=== PATIENT | male | born 1985 | race Caucasian/White ===

== ENCOUNTER 2017-02-04 15:34 | Emergency (ER) | payer OTHER ==
--- NOTE | 2017-02-04 18:28 | ED CLINICAL REPORT ---
Clinical Report - Physicians/Mid Levels [facility] [address] [place] [address] 02/04/2017 15:38 Patient: INA VARGAS Time Seen: 15:49; initial patient contact. Arrived- By private vehicle. Historian- patient. HISTORY OF PRESENT ILLNESS Chief Complaint: Injury to right shoulder. 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 Dislocated while raising arm. (possible). Occurred at home. Patient is experiencing moderate pain. Patient denies injury to the head or neck. REVIEW OF SYSTEMS No swelling, tingling, numbness or neck pain. He has had joint pain. All systems otherwise negative, except as recorded above. PAST HISTORY AC Joint Separation. Sprain. Tetanus Status. Diabetes Mellitus. SURGERIES: Shoulder Surgery. Medications: Baclofen Oral. BusPIRone HCl Oral. Topamax Oral. CeleXA Oral. Novalog. Lantus Subcutaneous. Allergies: Latex. SOCIAL HISTORY Never smoker. No alcohol use or drug use. ADDITIONAL NOTES The nursing notes have been reviewed. PHYSICAL EXAM Vital Signs: 02/04/2017 15:48 BP: 131/82. HR: 103. RR: 16. O2 saturation: 100%. Temp: 98.2 F. Pain level now: 10/10. Have been reviewed. Blood pressure normal. Tachycardic. Respiratory rate normal. Temperature normal. Oxygen saturation normal. Appearance: Alert. Oriented X3. No acute distress. Skin: Skin intact. Skin warm. Normal skin color. Extremities: Normal external inspection. Right shoulder: moderate tenderness. Limited ROM due to pain (diminished abduction, flexion, extension and external and internal rotation). Neurovascular intact distally. No erythema, swelling or deformity. No joint effusion. Shoulder otherwise negative. Extremities otherwise negative. Neuro, Vascular and Tendons: Sensation intact. Motor intact. Vascular status intact. Tendon function intact. Neuro: Oriented X 3. No motor deficit. No sensory deficit. LABS, X-RAYS, AND EKG Rt Shoulder X-ray: No fracture. Normal alignment. Soft tissues normal. Views: AP with external rotation and AP with internal rotation. Technique: good. The X-rays were independently viewed by me and interpreted contemporaneously by me. Prior films were not available for comparison. PROGRESS AND PROCEDURES Disposition: Discharged home in good and improved condition. Condition: good. CLINICAL IMPRESSION Muscle strain of the right rotator cuff at the shoulder. INSTRUCTIONS Apply ice for 20 minutes four times a day until better. Don't apply ice directly to skin. Your Current Medications: CONTINUE TAKING THE FOLLOWING MEDICATIONS: Baclofen Oral. BusPIRone HCl Oral. CeleXA Oral. Lantus Subcutaneous. Novalog*. Topamax Oral. Prescription Medications: Diclofenac 50 mg tablets: take 1 tablet orally every 8 hours as needed for pain or stiffness. Dispense thirty (30). No refill. Follow-up: Follow up with your doctor in about two days. Call for an appointment. Blood pressure screening was not performed during this visit because the patient has an active diagnosis of hypertension. (Electronically signed by Geoff Castano Dr. 02/05/2017 20:49)
--- NOTE | 2017-02-04 18:28 | ED CLINICAL REPORT ---
Clinical Report - Physicians/Mid Levels [facility] [address] [place] [address] 02/04/2017 15:38 Patient: INA VARGAS Time Seen: 15:49; initial patient contact. Arrived- By private vehicle. Historian- patient. HISTORY OF PRESENT ILLNESS Chief Complaint: Injury to right shoulder. 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 Dislocated while raising arm. (possible). Occurred at home. Patient is experiencing moderate pain. Patient denies injury to the head or neck. REVIEW OF SYSTEMS No swelling, tingling, numbness or neck pain. He has had joint pain. All systems otherwise negative, except as recorded above. PAST HISTORY AC Joint Separation. Sprain. Tetanus Status. Diabetes Mellitus. SURGERIES: Shoulder Surgery. Medications: Baclofen Oral. BusPIRone HCl Oral. Topamax Oral. CeleXA Oral. Novalog. Lantus Subcutaneous. Allergies: Latex. SOCIAL HISTORY Never smoker. No alcohol use or drug use. ADDITIONAL NOTES The nursing notes have been reviewed. PHYSICAL EXAM Vital Signs: 02/04/2017 15:48 BP: 131/82. HR: 103. RR: 16. O2 saturation: 100%. Temp: 98.2 F. Pain level now: 10/10. Have been reviewed. Blood pressure normal. Tachycardic. Respiratory rate normal. Temperature normal. Oxygen saturation normal. Appearance: Alert. Oriented X3. No acute distress. Skin: Skin intact. Skin warm. Normal skin color. Extremities: Normal external inspection. Right shoulder: moderate tenderness. Limited ROM due to pain (diminished abduction, flexion, extension and external and internal rotation). Neurovascular intact distally. No erythema, swelling or deformity. No joint effusion. Shoulder otherwise negative. Extremities otherwise negative. Neuro, Vascular and Tendons: Sensation intact. Motor intact. Vascular status intact. Tendon function intact. Neuro: Oriented X 3. No motor deficit. No sensory deficit. LABS, X-RAYS, AND EKG Rt Shoulder X-ray: No fracture. Normal alignment. Soft tissues normal. Views: AP with external rotation and AP with internal rotation. Technique: good. The X-rays were independently viewed by me and interpreted contemporaneously by me. Prior films were not available for comparison. PROGRESS AND PROCEDURES Disposition: Discharged home in good and improved condition. Condition: good. CLINICAL IMPRESSION Muscle strain of the right rotator cuff at the shoulder. INSTRUCTIONS Apply ice for 20 minutes four times a day until better. Don't apply ice directly to skin. Your Current Medications: CONTINUE TAKING THE FOLLOWING MEDICATIONS: Baclofen Oral. BusPIRone HCl Oral. CeleXA Oral. Lantus Subcutaneous. Novalog*. Topamax Oral. Prescription Medications: Diclofenac 50 mg tablets: take 1 tablet orally every 8 hours as needed for pain or stiffness. Dispense thirty (30). No refill. Follow-up: Follow up with your doctor in about two days. Call for an appointment. Blood pressure screening was not performed during this visit because the patient has an active diagnosis of hypertension. (Electronically signed by Geoff Castano Dr. 02/05/2017 20:49)
--- NOTE | 2017-02-04 18:28 | ED NURSING NOTES ---
Clinical Report - Nurses [facility] [place] [address] 02/04/2017 15:38 Patient: INA VARGAS TRIAGE Triage time 15:48 Feb 04 2017. Acuity: LEVEL 3. Chief Complaint: LEFT UPPER EXTREMITY PAIN. Alert. No acute distress. SEPSIS SCREEN: Sepsis Screen. Negative (no infection suspected/documented). MANUEL COMA SCORE: [place] Coma Scale: 15- eyes open spontaneously (4); best verbal response- oriented x 4 (5); best motor response- obeys commands (6). --15:54 Paloma Mansfield R.N. 15:48 02/04/17. BP: 131/82. HR: 103. RR: 16. O2 saturation: 100%. Temp: 98.2 F. Pain level now: 06/26. --15:54 Paloma Mansfield R.N. Weight: 115.6 kg stated. Height/Length: 74 inches Per Patient. BMI: 32.7. --15:53 Paloma Mansfield R.N. Medications Lantus Subcutaneous. --15:50 Paloma Mansfield R.N. Novalog. --15:50 Paloma Mansfield R.N. CeleXA Oral. --15:51 Paloma Mansfield R.N. Topamax Oral. --15:51 Paloma Mansfield R.N. BusPIRone HCl Oral. --15:51 Paloma Mansfield R.N. Baclofen Oral. --15:52 Paloma Mansfield R.N. Allergies Latex. --15:52 Paloma Mansfield R.N. History Arrived by private vehicle. Historian: patient. Accompanied by family. This occurred just prior to arrival. It is described as radiating to the right scapula, upper extremity and shoulder. 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 PAST MEDICAL HX: Tetanus status: up-to-date. Immunizations: up-to-date. SOCIAL HX: Never smoker. No alcohol use or drug use. No infectious disease exposure. SELF HARM ASSESSMENT: A self harm assessment was performed. The patient answered "no" to the question "Do you have thoughts of harming or killing yourself?". FALL RISK ASSESSMENT: Fall risk assessment completed. No fall risk identified. NUTRITIONAL RISK ASSESSMENT: The nutritional risk assessment revealed no deficiencies. FUNCTIONAL ASSESSMENT: Functional assessment: no impairments noted. LEARNING NEEDS ASSESSMENT: The learning needs assessment revealed no barriers. ABUSE ASSESSMENT: Abuse assessment: The patient was asked "Do you feel safe in your home?". SKIN INTEGRITY ASSESSMENT: Skin integrity risk assessment completed. No skin integrity risk identified. --15:54 Paloma Mansfield R.N. PROBLEMS: AC Joint Separation. Sprain. Tetanus Status. Diabetes Mellitus. --15:53 Paloma Mansfield R.N. ADDITIONAL SURGERIES: Shoulder Surgery. --15:53 Paloma Mansfield R.N. Interventions ID band on patient. To room. --15:54 Paloma Mansfield R.N. PHYSICAL ASSESSMENT Ambulatory to room. GENERAL / NEURO / PSYCH: Oriented X 4. Alert. Appears in no acute distress. He has had new onset of numbness (thumb and index finger). EXTREMITIES: No upper extremity edema. Right shoulder: tenderness located in the anterior aspect of the shoulder. Limited ROM due to pain (diminished abduction, adduction, flexion and extension). SKIN: Skin is warm and dry. --15:55 Paloma Mansfield R.N. NURSING PROGRESS NOTES Patient gowned. Two patient identifiers checked. Call light placed in reach. Bed placed in lowest position. Brakes of bed on. --15:55 Paloma Mansfield R.N. Patient walked to radiology with [email or web address]. --16:06 Elizabeth Reyes R.N. 16:12 02/04/2017 Toradol (Ketorolac Tromethamine) IM 60 mg given. Given in the right anterior lateral thigh. Allergies verified and confirmed 5 rights. --16:12 Paloma Mansfield R.N. 18:13 02/04/2017 Morphine (Morphine Sulfate (PF)) IM 4 mg given. Given in the left deltoid. Allergies verified, confirmed 5 rights and sedative warning given to the patient. --18:13 Paloma Mansfield R.N. DISPOSITION / DISCHARGE 18:13 02/04/17. BP: 123/84. HR: 84. RR: 16. O2 saturation: 100%. Pain level now: 04/26. --18:14 Paloma Mansfield R.N. Departure time: 18:35 Feb 04 2017. Condition at departure: improved. No learning barriers present. Reviewed medication(s) side effects, precautions, dosing and course information. Prescription(s) given to the patient. Reviewed referral to an orthopedic surgeon and a primary care physician. Patient verbalized understanding. Written instructions provided in Welsh. Discharge instructions not provided and reviewed with the patient. The patient was discharged home and accompanied by spouse. He left the Emergency Department ambulatory and via private vehicle. Spouse driving. FALL RISK ASSESSMENT: Fall risk assessment completed. No fall risk identified. --18:35 Paloma Mansfield R.N. Locked/Released at 02/04/2017 19:07 by Paloma Mansfield R.N.
--- NOTE | 2017-02-04 18:28 | ED ORDER SUMMARY ---
..... Patient: INA VARGAS OrderSheet [facility] VisitID: [id number] [place] [address] 32y, M Registration Date/Time: 02/04/2017 ORDER SHEET Weight: 115.6 kg (stated) Allergies: Latex GENERAL ORDERS: Shoulder 2V or more Right Urgent (16:00 02/04/2017 Yoselyn Renae) (16:12 Jeremy) MEDICATION ORDERS: Toradol IM 60 mg (NOW) (16:00 02/04/2017 Yoselyn Renae) (16:12 Jaja R.N.) Morphine IM 4 mg (HIGH ALERT MEDICATION, NOW) (17:14 02/04/2017 Yoselyn Renae) (18:13 Jaja R.N.) IV FLUIDS: ORDER SHEET NOTES: [Electronically signed by Paloma Mansfield R.N. (19:07 02/04/2017)] [Electronically signed by Geoff Castano Dr. (20:49 02/05/2017)] [Electronically locked/signed by Paloma Mansfield R.N. (19:07 02/04/2017)]
--- NOTE | 2017-02-04 18:28 | ED ORDER SUMMARY ---
..... Patient: INA VARGAS OrderSheet [facility] VisitID: [id number] [place] [address] 32y, M Registration Date/Time: 02/04/2017 ORDER SHEET Weight: 115.6 kg (stated) Allergies: Latex GENERAL ORDERS: Shoulder 2V or more Right Urgent (16:00 02/04/2017 Yoselyn Renae) (16:12 Jeremy) MEDICATION ORDERS: Toradol IM 60 mg (NOW) (16:00 02/04/2017 Yoselyn Renae) (16:12 Jaja R.N.) Morphine IM 4 mg (HIGH ALERT MEDICATION, NOW) (17:14 02/04/2017 Yoselyn Renae) (18:13 Jaja R.N.) IV FLUIDS: ORDER SHEET NOTES: [Electronically signed by Paloma Mansfield R.N. (19:07 02/04/2017)] [Electronically signed by Geoff Castano Dr. (20:49 02/05/2017)] [Electronically locked/signed by Paloma Mansfield R.N. (19:07 02/04/2017)]
--- NOTE | 2017-02-04 18:28 | ED NURSING NOTES ---
Clinical Report - Nurses [facility] [place] [address] 02/04/2017 15:38 Patient: INA VARGAS TRIAGE Triage time 15:48 Feb 04 2017. Acuity: LEVEL 3. Chief Complaint: LEFT UPPER EXTREMITY PAIN. Alert. No acute distress. SEPSIS SCREEN: Sepsis Screen. Negative (no infection suspected/documented). MANUEL COMA SCORE: [place] Coma Scale: 15- eyes open spontaneously (4); best verbal response- oriented x 4 (5); best motor response- obeys commands (6). --15:54 Paloma Mansfield R.N. 15:48 02/04/17. BP: 131/82. HR: 103. RR: 16. O2 saturation: 100%. Temp: 98.2 F. Pain level now: 06/26. --15:54 Paloma Mansfield R.N. Weight: 115.6 kg stated. Height/Length: 74 inches Per Patient. BMI: 32.7. --15:53 Paloma Mansfield R.N. Medications Lantus Subcutaneous. --15:50 Paloma Mansfield R.N. Novalog. --15:50 Paloma Mansfield R.N. CeleXA Oral. --15:51 Paloma Mansfield R.N. Topamax Oral. --15:51 Paloma Mansfield R.N. BusPIRone HCl Oral. --15:51 Paloma Mansfield R.N. Baclofen Oral. --15:52 Paloma Mansfield R.N. Allergies Latex. --15:52 Paloma Mansfield R.N. History Arrived by private vehicle. Historian: patient. Accompanied by family. This occurred just prior to arrival. It is described as radiating to the right scapula, upper extremity and shoulder. 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 PAST MEDICAL HX: Tetanus status: up-to-date. Immunizations: up-to-date. SOCIAL HX: Never smoker. No alcohol use or drug use. No infectious disease exposure. SELF HARM ASSESSMENT: A self harm assessment was performed. The patient answered "no" to the question "Do you have thoughts of harming or killing yourself?". FALL RISK ASSESSMENT: Fall risk assessment completed. No fall risk identified. NUTRITIONAL RISK ASSESSMENT: The nutritional risk assessment revealed no deficiencies. FUNCTIONAL ASSESSMENT: Functional assessment: no impairments noted. LEARNING NEEDS ASSESSMENT: The learning needs assessment revealed no barriers. ABUSE ASSESSMENT: Abuse assessment: The patient was asked "Do you feel safe in your home?". SKIN INTEGRITY ASSESSMENT: Skin integrity risk assessment completed. No skin integrity risk identified. --15:54 Paloma Mansfield R.N. PROBLEMS: AC Joint Separation. Sprain. Tetanus Status. Diabetes Mellitus. --15:53 Paloma Mansfield R.N. ADDITIONAL SURGERIES: Shoulder Surgery. --15:53 Paloma Mansfield R.N. Interventions ID band on patient. To room. --15:54 Paloma Mansfield R.N. PHYSICAL ASSESSMENT Ambulatory to room. GENERAL / NEURO / PSYCH: Oriented X 4. Alert. Appears in no acute distress. He has had new onset of numbness (thumb and index finger). EXTREMITIES: No upper extremity edema. Right shoulder: tenderness located in the anterior aspect of the shoulder. Limited ROM due to pain (diminished abduction, adduction, flexion and extension). SKIN: Skin is warm and dry. --15:55 Paloma Mansfield R.N. NURSING PROGRESS NOTES Patient gowned. Two patient identifiers checked. Call light placed in reach. Bed placed in lowest position. Brakes of bed on. --15:55 Paloma Mansfield R.N. Patient walked to radiology with [employer]. --16:06 Elizabeth Reyes R.N. 16:12 02/04/2017 Toradol (Ketorolac Tromethamine) IM 60 mg given. Given in the right anterior lateral thigh. Allergies verified and confirmed 5 rights. --16:12 Paloma Mansfield R.N. 18:13 02/04/2017 Morphine (Morphine Sulfate (PF)) IM 4 mg given. Given in the left deltoid. Allergies verified, confirmed 5 rights and sedative warning given to the patient. --18:13 Paloma Mansfield R.N. DISPOSITION / DISCHARGE 18:13 02/04/17. BP: 123/84. HR: 84. RR: 16. O2 saturation: 100%. Pain level now: 04/26. --18:14 Paloma Mansfield R.N. Departure time: 18:35 Feb 04 2017. Condition at departure: improved. No learning barriers present. Reviewed medication(s) side effects, precautions, dosing and course information. Prescription(s) given to the patient. Reviewed referral to an orthopedic surgeon and a primary care physician. Patient verbalized understanding. Written instructions provided in Czech. Discharge instructions not provided and reviewed with the patient. The patient was discharged home and accompanied by spouse. He left the Emergency Department ambulatory and via private vehicle. Spouse driving. FALL RISK ASSESSMENT: Fall risk assessment completed. No fall risk identified. --18:35 Paloma Mansfield R.N. Locked/Released at 02/04/2017 19:07 by Paloma Mansfield R.N.
--- NOTE | 2017-02-04 18:51 | DIAGNOSTIC IMAGING REPORT ---
PROCEDURE: XR SHOULDER 2 OR MORE VW-RIGHT INDICATION: Trauma. Injury. Reported history of AC joint surgery. TECHNIQUE: Three views. COMPARISON: None. FINDINGS: Mild degenerative and/or postoperative changes of the right acromioclavicular joint. Osseous structures and joint spaces are otherwise normal. IMPRESSION: 1. Mild degenerative and/or postoperative changes of the right acromioclavicular joint. 2. Otherwise negative right shoulder.
--- NOTE | 2017-02-05 20:49 | ED MAR SUMMARY ---
..... Medication Administration Record [facility] [address] [place] [address] Patient: INA VARGAS Visit ID: [id number] 32y, M Weight: 115.6 kg Height/Length: 74 in BMI: 32.7 ALLERGIES: Latex Given 16:12 02/04/2017 Paloma Mansfield, RSharleneNSharlene Medication Administered: TORADOL [IM] (KETOROLAC TROMETHAMINE), Dose: 60 mg IM. Medication Ordered: Toradol IM 60 mg (NOW). Given 18:13 02/04/2017 Paloma Mansfield, R.NSharlene Medication Administered: MORPHINE [IM] (MORPHINE SULFATE (PF)), Dose: 4 mg IM. Medication Ordered: Morphine IM 4 mg (HIGH ALERT MEDICATION, NOW).
--- NOTE | 2017-02-05 20:49 | ED MAR SUMMARY ---
..... Medication Administration Record [facility] [address] [place] [address] Patient: INA VARGAS Visit ID: [id number] 32y, M Weight: 115.6 kg Height/Length: 74 in BMI: 32.7 ALLERGIES: Latex Given 16:12 02/04/2017 Paloma Mansfield, RSharleneNSharlene Medication Administered: TORADOL [IM] (KETOROLAC TROMETHAMINE), Dose: 60 mg IM. Medication Ordered: Toradol IM 60 mg (NOW). Given 18:13 02/04/2017 Paloma Mansfield, R.NSharlene Medication Administered: MORPHINE [IM] (MORPHINE SULFATE (PF)), Dose: 4 mg IM. Medication Ordered: Morphine IM 4 mg (HIGH ALERT MEDICATION, NOW).
--- NOTE | 2017-02-05 20:49 | ED DISCHARGE INSTRUCTIONS ---
Patient: INA VARGAS General Instructions [facility] VisitID: [id number] [place] [address] 32y, M Registration Date/Time: 02/04/2017 Muscle strain of the right rotator cuff at the shoulder. INSTRUCTIONS Apply ice for 20 minutes four times a day until better. Don't apply ice directly to skin. Your Current Medications: CONTINUE TAKING THE FOLLOWING MEDICATIONS: Baclofen Oral. BusPIRone HCl Oral. CeleXA Oral. Lantus Subcutaneous. Novalog*. Topamax Oral. Prescription Medications: Diclofenac 50 mg tablets: take 1 tablet orally every 8 hours as needed for pain or stiffness. Dispense thirty (30). No refill. Follow-up: Follow up with your doctor in about two days. Call for an appointment. Blood pressure screening was not performed during this visit because the patient has an active diagnosis of hypertension. ADDITIONAL INFORMATION Muscle Strain,Extremity A MUSCLE STRAIN is a stretching and tearing of muscle fibers. This causes pain, especially with motion of that muscle. There may also be some swelling and bruising. Home Care: 1) Keep the injured area raised to reduce pain and swelling. This is especially important during the first 48 hours. 2) Make an ice pack (ice cubes in a plastic bag, wrapped in a towel) and apply for 20 minutes every 1-2 hours the first day. You should continue with ice packs 3-4 times a day for the second and third days. Unless otherwise instructed, on the fourth day you may begin hot soaks or hot packs (small towel soaked in hot water) 3-4 times a day while you gently exercise the involved area. 3) You may use acetaminophen (Tylenol) or ibuprofen (Motrin, Advil) to control pain, unless another medicine was prescribed. [ NOTE : If you have chronic liver or kidney disease or ever had a stomach ulcer or GI bleeding, talk with your doctor before using these medicines.] 4) For LEG STRAINS: If CRUTCHES have been recommended, do not bear full weight on the injured leg until you can do so without pain. You may return to sports when you are able to hop and run on the injured leg without pain. Follow Up with your doctor or this facility if you are not improving within the next five days. Get Prompt Medical Attention if any of the following occur: -- Fingers or toes become swollen, cold, blue, numb or tingly -- Pain or swelling increases You have been given the following additional information: Muscle Strain, Extremity (Electronically signed by Geoff Castano Dr. 02/05/2017 20:49)
--- NOTE | 2017-02-05 20:49 | ED MED RECONCILIATION SUMMARY ---
Patient: INA VARGAS Medication Reconciliation Report [facility] VisitID: [id number] [address] [place] [address] 32y, M Registration Date/Time: 02/04/2017 Weight: 115.6 kg Height/Length: 74 in. BMI: 32.7 ALLERGIES: Latex The patient's Home Medications are listed below: CONTINUE TAKING THE FOLLOWING MEDICATIONS: Baclofen Oral BusPIRone HCl Oral CeleXA Oral Lantus Subcutaneous Novalog Topamax Oral The source(s) of the original Home Medication information: Not obtained. The following Medications were given to the patient in the Emergency Department: Toradol [IM] IM 60 mg, administered: 02/04/2017 4:12:00 PM Morphine [IM] IM 4 mg, administered: 02/04/2017 6:13:00 PM The following Medications were prescribed to the patient: Diclofenac 50 mg tablets: take 1 tablet orally every 8 hours as needed for pain or stiffness. Dispense thirty (30). No refill. -- Geoff Castano Dr.
--- NOTE | 2017-02-05 20:49 | ED MED RECONCILIATION SUMMARY ---
Patient: INA VARGAS Medication Reconciliation Report [facility] VisitID: [id number] [address] [place] [address] 32y, M Registration Date/Time: 02/04/2017 Weight: 115.6 kg Height/Length: 74 in. BMI: 32.7 ALLERGIES: Latex The patient's Home Medications are listed below: CONTINUE TAKING THE FOLLOWING MEDICATIONS: Baclofen Oral BusPIRone HCl Oral CeleXA Oral Lantus Subcutaneous Novalog Topamax Oral The source(s) of the original Home Medication information: Not obtained. The following Medications were given to the patient in the Emergency Department: Toradol [IM] IM 60 mg, administered: 02/04/2017 4:12:00 PM Morphine [IM] IM 4 mg, administered: 02/04/2017 6:13:00 PM The following Medications were prescribed to the patient: Diclofenac 50 mg tablets: take 1 tablet orally every 8 hours as needed for pain or stiffness. Dispense thirty (30). No refill. -- Geoff Castano Dr.
== END 2017-02-04 18:35 | disposition home or self-care (01) ==
LOC: ED SRH 15:34
DX: S46.011A Strain of muscle(s) and tendon(s) of the rotator cuff of right shoulder, initial encounter (principal); X50.0XXA Overexertion from strenuous movement or load, initial encounter; Y93.89 Activity, other specified; Y99.9 Unspecified external cause status; Y92.009 Unspecified place in unspecified non-institutional (private) residence as the place of occurrence of the external cause; E11.9 Type 2 diabetes mellitus without complications; Z79.4 Long term (current) use of insulin; Z79.899 Other long term (current) drug therapy; Z91.040 Latex allergy status